=== PATIENT | female | born 1940 | race Caucasian/White ===

== ENCOUNTER 2018-04-14 09:08 | Emergency (ER) | payer OTHER ==
[~2018-04-14] VITALS: Ht 162.6 cm; Wt 67.1 kg
[2018-04-14] MEDS ORDERED: KEFLEX500 M1 PO (10:16)
[2018-04-14 10:27] VITALS: BP 160/82
== END 2018-04-14 10:28 | disposition home or self-care (01) ==
LOC: M.ERS 09:08
DX: S61.210A Laceration without foreign body of right index finger without damage to nail, initial encounter (principal); Z90.710 Acquired absence of both cervix and uterus; Z88.8 Allergy status to other drugs, medicaments and biological substances; W26.0XXA Contact with knife, initial encounter; Y93.89 Activity, other specified; Y92.89 Other specified places as the place of occurrence of the external cause; Y99.8 Other external cause status